=== PATIENT | female | born 1955 | race Caucasian/White ===

== ENCOUNTER 2024-02-03 15:44 | Emergency (ER) | payer BC, MEDICARE ==
[2024-02-03] MEDS ORDERED: Morphine 4 MG/ML Syringe IVPUSH PRN (16:05)
[2024-02-03] MEDS ORDERED: Sodium Chloride 0.9% 10 ML Syringe FLUSH PRN (16:05)
[2024-02-03] MEDS ORDERED: Nitroglycerin 0.4 MG Tab.SL SL PRN (16:05)
[2024-02-03 16:12] LABS: BASOPHILS ABSOLUTE AUTO 0.03 K/uL (0.00-0.10); BASOPHILS PERCENT AUTO 0.4 % (0.1-1.3); EOSINOPHILS ABSOLUTE AUTO 0.08 K/uL (0.00-0.40); HEMATOCRIT 35.4 % (34.3-46.0); IMMATURE GRAN ABSOLUTE AUTO 0.02 K/uL (0.00-0.23); IMMATURE GRAN PERCENT AUTO 0.3 % (0.0-0.7); LYMPHOCYTES ABSOLUTE AUTO 2.39 K/uL (0.8-3.3); LYMPHOCYTES PERCENT AUTO 31.2 % (11.4-47.7); MEAN CORPUSCULAR HEMOGLOBIN 32.4 pg (31.6-35.5); MEAN CORPUSCULAR HGB CONC 33.9 g/dL (31.6-35.5); MEAN CORPUSCULAR VOLUME 95.7 fL (81.4-99.0); MONOCYTES PERCENT AUTO 9.2 % (3.3-12.6); NEUTROPHILS ABSOLUTE AUTO 4.43 K/uL (1.0-7.6); NEUTROPHILS PERCENT AUTO 57.9 % (40.0-78.1); PLATELET COUNT,PLT 224 K/uL (130-375); WHITE BLOOD CELL COUNT,WBC 7.7 K/uL (3.2-11.0)
[2024-02-03 16:27] LABS: ANION GAP 6.6 mmol/L (5.0-14.0); BLOOD UREA NITROGEN,BUN 18 mg/dL (7-18); CALCIUM 9.7 mg/dL (8.5-10.1); CARBON DIOXIDE,CO2 30 mmol/L (21-32); CHLORIDE,CL 104 mmol/L (100-108); CREATININE 0.8 mg/dL (0.6-1.0); ESTIMATED GFR 79 mL/min (>60); GLUCOSE RANDOM 95 mg/dL (74-106); POTASSIUM,K 3.8 mmol/L (3.6-5.2); SODIUM,NA 141 mmol/L (140-148)
[2024-02-03] MEDS: Aspirin 81 MG Tab.Chew PO ONE (16:36)
[2024-02-03 16:49] VITALS: BP 130/76; PULSE 47
== END 2024-02-03 17:41 | disposition home or self-care (01) ==
LOC: JP.ED 15:44
DX: R07.89 Other chest pain (principal); Z79.2 Long term (current) use of antibiotics; Z88.0 Allergy status to penicillin; Z88.8 Allergy status to other drugs, medicaments and biological substances
CPT/HCPCS: 36415; 71045; 71045-26; 80048; 84484; 85025; 93005; 93010; 99283; 99285; A9270-GY